=== PATIENT | female | born 1980 | race Caucasian/White ===

== ENCOUNTER 2021-10-19 00:05 | Emergency (ER) | payer MEDICAID, OTHER ==
[~2021-10-19] VITALS: Ht 165 cm; Wt 58.0 kg
[2021-10-19 00:46] LABS: BASOPHILS % (AUTO) 0 % (0-10); EOSINOPHILS % (AUTO) 0 % (0-10); HEMATOCRIT 37 % (35-52); HEMOGLOBIN 11.5 g/dL (11.5-16.0); LYMPHOCYTES # (AUTO) 1.8 10^3/uL (1.0-4.0); LYMPHOCYTES % (AUTO) 19 % (12-44); MEAN CORPUSCULAR HEMOGLOBIN 24 pg (25-34); MEAN CORPUSCULAR HGB CONC 31 g/dL (32-36); MEAN CORPUSCULAR VOLUME 77 fL (80-99); MEAN PLATELET VOLUME 10.1 fL (9.0-12.2); MONOCYTES # (AUTO) 0.8 10^3/uL (0.0-1.0); MONOCYTES % (AUTO) 8 % (0-12); NEUTROPHILS # (AUTO) 6.8 10^3/uL (1.8-7.8); NEUTROPHILS % (AUTO) 72 % (42-75); PLATELET COUNT 295 10^3/uL (130-400); WHITE BLOOD COUNT 9.4 10^3/uL (4.3-11.0)
[2021-10-19 00:56] LABS: BILIRUBIN,URINE NEGATIVE (NEGATIVE); CLARITY,URINE CLEAR; COLOR,URINE YELLOW; GLUCOSE, URINE (UA) NEGATIVE (NEGATIVE); KETONES,URINE 1+ (NEGATIVE); LEUKOCYTE ESTERASE ,URINE NEGATIVE (NEGATIVE); NITRITE,URINE NEGATIVE (NEGATIVE); PROTEIN,URINE TRACE (NEGATIVE)
[2021-10-19 00:59] LABS: ALBUMIN 4.4 GM/DL (3.2-4.5); CHLORIDE 104 MMOL/L (98-107); SODIUM 141 MMOL/L (135-145)
[2021-10-19 01:00] LABS: BACTERIA,URINE TRACE /HPF; SQUAMOUS EPITHELIAL CELL,UR 0-2 /HPF
[2021-10-19 01:00] LABS: CALCIUM 9.4 MG/DL (8.5-10.1)
[2021-10-19 01:01] LABS: GLUCOSE 115 MG/DL (70-105); TOTAL PROTEIN 6.9 GM/DL (6.4-8.2)
[2021-10-19 01:02] LABS: CARBON DIOXIDE 24 MMOL/L (21-32)
[2021-10-19 01:03] LABS: BILIRUBIN,TOTAL 0.9 MG/DL (0.1-1.0)
[2021-10-19 01:04] LABS: ALKALINE PHOSPHATASE 39 U/L (40-136)
[2021-10-19 01:05] LABS: CREATININE SERUM 0.75 MG/DL (0.60-1.30); GFR ESTIMATED 103
[2021-10-19 01:06] LABS: BUN/CREATININE RATIO 15
[2021-10-19 01:08] LABS: ALANINE AMINOTRANSFERASE 13 U/L (0-55); LIPASE 11 U/L (8-78)
--- NOTE | 2021-10-19 01:40 | ED Abdominal Pain ---
General Chief Complaint: Abdominal/GI Problems Stated Complaint: ABD PAIN,SWEATS,CAN'T EAT Nursing Triage Note: PT AMB TO ED BY POV WITH C/O LLQ PAIN X 2 WEEKS, WORSE OVER THE LAST 3 DAYS. PT REPORTS N/V/D X 3 DAYS, EATING WORSENS PAIN. PT WAS SEEN AT [facility] AND PRESCRIBED SUCRALFATE, ZOFRAN, PANTOPRAZOLE. Source of Information: Patient Exam Limitations: No Limitations History of Present Illness Date Seen by Provider: Oct 19, 2021 Time Seen by Provider: 00:35 Initial Comments This 40-year-old woman presents to the emergency room with complaints of intense left lower quadrant pain over the past 2 weeks, worsening over the past 3 days. She has had some degree of symptoms for about the past year. She denies any pain with urination. She has noted some blood in her stools. Symptoms include nausea, vomiting, and diarrhea for the past 3 days. Eating seems to exacerbate the symptoms. She has been under the care of Dr. Matthews, machine maintenance supervisor at [facility]. She reports hepatobiliary scan revealed gallbladder dysfunction. This study was done September 27. She reports gastric emptying study was performed October 03 and was unremarkable. She denies and LMP was 2 weeks ago. She had colonoscopy June 2020. She has not had any ultrasound or CT imaging that she can recall. She was seen in the clinic this afternoon and received a Toradol injection which was not very helpful. She was also prescribed Protonix, Zofran, and sucralfate. Pain has become more severe prompting her ER visit. She denies any fever. She denies any vaginal pain or discharge. Allergies and Home Medications Allergies Coded Allergies: No Known Drug Allergies (Unverified , 10/19/21) Patient Home Medication List Home Medication List Reviewed: Yes Tramadol HCl (Ultram) 50 Mg Tablet, 50 MG PO Q4H PRN for PAIN-BREAKTHROUGH Prescribed by: AZIZA NAVA on 10/19/21 0439 Review of Systems Review of Systems Constitutional: no symptoms reported EENTM: No Symptoms Reported Respiratory: No Symptoms Reported Cardiovascular: No Symptoms Reported Gastrointestinal: See HPI Genitourinary: No Symptoms Reported Musculoskeletal: no symptoms reported Skin: no symptoms reported Psychiatric/Neurological: No Symptoms Reported Endocrine: No Symptoms Reported Hematologic/Lymphatic: No Symptoms Reported Past Dbtgdqj-Hoemws-Hzlavv Hx Patient Social History Tobacco Use?: No Use of E-Cig and/or Vaping dev: No Substance use?: Yes Substance type: Marijuana (Gummy) Substance frequency: Several times a month Alcohol Use?: No Pt feels they are or have been: No Immunizations Up To Date Influenza Vaccine Up-to-Date: No; Not Current Past Medical History Surgeries: Yes (Salpingectomy) Section (X3) Respiratory: No Cardiac: No Neurological: No : No Genitourinary: No Gastrointestinal: Yes (Chronic abdominal pain) Musculoskeletal: No Endocrine: No HEENT: No Cancer: No Psychosocial: No Integumentary: No Physical Exam Vital Signs Vital Signs - First Documented 10/19/21 00:46 Temp 36.8 Pulse 50 Resp 16 B/P (MAP) 156/98 (117) Pulse Ox 99 O2 Delivery Room Air Capillary Refill : Less Than 3 Seconds Height/Weight/BMI Height: '" Weight: lbs. oz. kg; 21.00 BMI Method: General Appearance: WD/WN, mild distress HEENT: PERRL/EOMI, normal ENT inspection Neck: normal inspection Respiratory: lungs clear, normal breath sounds, no respiratory distress, no accessory muscle use Cardiovascular: regular rate, rhythm, no edema, no murmur Gastrointestinal: normal bowel sounds, soft; No distended; tenderness (Ge neralized and sparing the right lower quadrant. Most intense in the left lower quadrant) Extremities: normal inspection, no pedal edema Neurologic/Psychiatric: pai gow dealer II-XII nml as tested, no motor/sensory deficits, alert, normal mood/affect, oriented x 3 Skin: normal color, warm/dry Progress/Results/Core Measures Results/Orders Lab Results Laboratory Tests Test 10/19/21 00:27 10/19/21 00:35 Range/Units Urine Color YELLOW Urine Clarity CLEAR Urine pH 7.0 5-9 Urine Specific [place] 1.020 1.016-1.022 Urine Protein TRACE H NEGATIVE Urine Glucose (UA) NEGATIVE NEGATIVE Urine Ketones 1+ H NEGATIVE Urine Nitrite NEGATIVE NEGATIVE Urine Bilirubin NEGATIVE NEGATIVE Urine Urobilinogen 1.0 < = 1.0 MG/DL Urine Leukocyte Esterase NEGATIVE NEGATIVE Urine RBC (Auto) NEGATIVE NEGATIVE Urine RBC NONE /HPF Urine WBC NONE /HPF Urine Squamous Epithelial Cells 0-2 /HPF Urine Crystals NONE /LPF Urine Bacteria TRACE /HPF Urine Casts NONE /LPF Urine Mucus SMALL H /LPF Urine Culture Indicated NO White Blood Count 9.4 4.3-11.0 10^3/uL Red Blood Count 4.78 3.80-5.11 10^6/uL Hemoglobin 11.5 11.5-16.0 g/dL Hematocrit 37 35-52 % Mean Corpuscular Volume 77 L 80-99 fL Mean Corpuscular Hemoglobin 24 L 25-34 pg Mean Corpuscular Hemoglobin Concent 31 L 32-36 g/dL Red Cell Distribution Width 16.9 H 10.0-14.5 % Platelet Count 295 130-400 10^3/uL Mean Platelet Volume 10.1 9.0-12.2 fL Immature Granulocyte % (Auto) 0 % Neutrophils (%) (Auto) 72 42-75 % Lymphocytes (%) (Auto) 19 12-44 % Monocytes (%) (Auto) 8 0-12 % Eosinophils (%) (Auto) 0 0-10 % Basophils (%) (Auto) 0 0-10 % Neutrophils # (Auto) 6.8 1.8-7.8 10^3/uL Lymphocytes # (Auto) 1.8 1.0-4.0 10^3/uL Monocytes # (Auto) 0.8 0.0-1.0 10^3/uL Eosinophils # (Auto) 0.0 0.0-0.3 10^3/uL Basophils # (Auto) 0.0 0.0-0.1 10^3/uL Immature Granulocyte # (Auto) 0.0 0.0-0.1 10^3/uL Sodium Level 141 135-145 MMOL/L Potassium Level 3.0 L 3.6-5.0 MMOL/L Chloride Level 104 98-107 MMOL/L Carbon Dioxide Level 24 21-32 MMOL/L Anion Gap 13 5-14 MMOL/L Blood Urea Nitrogen 11 7-18 MG/DL Creatinine 0.75 0.60-1.30 MG/DL Estimat Glomerular Filtration Rate 103 BUN/Creatinine Ratio 15 Glucose Level 115 H 70-105 MG/DL Calcium Level 9.4 8.5-10.1 MG/DL Corrected Calcium 9.1 8.5-10.1 MG/DL Total Bilirubin 0.9 0.1-1.0 MG/DL Aspartate Amino Transf (AST/SGOT) 13 5-34 U/L Alanine Aminotransferase (ALT/SGPT) 13 0-55 U/L Alkaline Phosphatase 39 L 40-136 U/L C-Reactive Protein High Sensitivity < 0.01 0.00-0.50 MG/DL Total Protein 6.9 6.4-8.2 GM/DL Albumin 4.4 3.2-4.5 GM/DL Lipase 11 8-78 U/L Serum Test, Qualitative NEGATIVE NEGATIVE My Orders Orders - AZIZA MCGOWAN MD Cbc With Automated Diff (10/19/21 00:35) Comprehensive Metabolic Panel (10/19/21 00:35) Hs C Reactive Protein (10/19/21 00:35) Lipase (10/19/21 00:35) Ua Culture If Indicated (10/19/21 00:35) Ed Iv/Invasive Line Start (10/19/21 00:35) Hcg,Qualitative Serum (10/19/21 01:36) Ondansetron Injection (Zofran Injectio (10/19/21 01:45) Fentanyl Inj (Sublimaze Injection) (10/19/21 01:45) Lactated Ringers (Lr 1000 Ml Iv Solution (10/19/21 01:45) Ct Abdomen/Pelvis W (10/19/21 01:37) Potassium Chloride (Tablet) (Klor Con Ta (10/19/21 04:45) Medications Given in ED Vital Signs/I&O 10/19/21 10/19/21 00:46 04:46 Temp 36.8 36.3 Pulse 50 50 Resp 16 16 B/P (MAP) 156/98 (117) 121/67 Pulse Ox 99 98 O2 Delivery Room Air Room Air Blood Pressure Mean: 117 Progress Progress Note : Progress Note Symptoms were treated with fentanyl and Zofran. She was hydrated with a liter of IV fluids. Hypokalemia was noted, but work-up was otherwise unremarkable. She was offered CT scan for further evaluation which she accepted. CT revealed no specific etiology for her pain. There was prominent uterus and endometrium noted which could be due to physiologic menstrual phase. Patient was ultimately discharged with recommendations for symptom management and follow-up. Potassium was replaced orally. Patient was offered further evaluation with outpatient ultrasound. Order was provided. Diagnostic Imaging Diagonstic Imaging: CT Plain Films/CT/US/NM/MRI: abdomen, pelvis Comments CT scan viewed by me and stat rad report reviewed. Official read below eventually reviewed after patient departure. NAME: KULWANT MURRAY [facility] REC#: [id number] PT STATUS: DEP ER : 1980 PHYSICIAN: AZIZA MCGOWAN MD ADMIT DATE: 10/19/21/ER Signed Date of Exam:10/19/21 CT ABDOMEN/PELVIS W PROCEDURE: CT abdomen and pelvis with contrast. TECHNIQUE: Multiple contiguous axial images were obtained through the abdomen and pelvis after administration of intravenous contrast. Auto Exposure Controls were utilized during the CT exam to meet ALARA standards for radiation dose reduction. All CT scans use one or more of the following dose optimizing techniques: automated exposure control, MA and/or KvP adjustment based on patient size and exam type or iterative reconstruction. INDICATION: Abdominal pain, generalized COMPARISON: None FINDINGS: The lung bases are clear. The heart is normal in size. The liver demonstrates a focal lesion at the dome of the right lobe which measures 2.2 x 2.1 cm in size on axial imaging. This does appear to have irregular interrupted peripheral enhancement on this phase. The spleen appears normal. The pancreas appears normal. The adrenal glands are normal. The kidneys demonstrate normal enhancement. There is no hydronephrosis or mass seen. The bowel loops are nondistended without obstruction. The appendix appears normal (image 108 series 2). No free fluid or free air is seen. The uterus is mildly prominent with endometrial fluid. No acute osseous abnormality is seen. Air-filled degenerative cystlike changes are noted at the right iliac body. IMPRESSION: 1. No acute abnormality is seen in the abdomen or pelvis. 2. Prominent uterus with mildly increased endometrial fluid, but no discrete mass is seen. 3. Small heterogeneous lesion of the superior right liver, most compatible with a hemangioma. No significant changes from the preliminary report. Dictated by: Dictated on workstation # [id number] Dict: 10/19/2146 Trans: 10/19/21 1133 [facility] [id number] Interpreted by: SHANAE GARCÍA MD Electronically signed by: SHANAE GARCÍA MD 10/19/21 1133 Departure Impression Primary Impression: Generalized abdominal pain Additional Impressions: Nausea vomiting and diarrhea Hypokalemia Disposition: 01 HOME, SELF-CARE Condition: Improved Departure-Patient Inst. Referrals: NO,LOCAL PHYSICIAN (PCP/Family) Primary Care Physician Patient Instructions: Abdominal Pain, Adult ED Add. Discharge Instructions: Drink plenty of clear liquids to stay well-hydrated. Use your medications as prescribed. Return to the emergency room after 7:30 in the morning with your ultrasound order form. Check in at the registration desk with your order form. Eat a low-fat, low oil diet to avoid triggering gallbladder problems. Use Tylenol (acetaminophen) up to 1000 mg every 6 hours as needed for pain. Add Ultram (tramadol) as prescribed for pain not controlled by Tylenol. Follow-up with your primary care provider and machine maintenance supervisor as soon as possible. Return to the ER if you have worsening symptoms. All discharge instructions reviewed with patient and/or family. Voiced understan linda. Scripts Tramadol HCl (Ultram) 50 Mg Tablet 50 MG PO Q4H PRN for PAIN-BREAKTHROUGH, #10 TAB Prov: AZIZA MCGOWAN MD 10/19/21 AZIZA MCGOWAN MD Oct 19, 2021 01:40
[2021-10-19] MEDS ORDERED: fentaNYL INJ 100 MCG/2 ML AMP IVP ONE (01:45)
[2021-10-19] MEDS ORDERED: ONDANSETRON 4 MG/2 ML (SDV) Z0FRAN IVP ONE (01:45)
[2021-10-19] MEDS ORDERED: LACTATED RINGERS 1,000 ML IV ONE (01:45)
[2021-10-19] MEDS ORDERED: TRAM-42 PO (04:38)
[2021-10-19] MEDS ORDERED: KCL 10 MEQ TAB (MICRO K) PO ONE (04:45)
[2021-10-19 04:46] VITALS: BP 121/67
--- NOTE | 2021-10-19 06:57 | Diagnostic Imaging Report ---
PROCEDURE: CT abdomen and pelvis with contrast. TECHNIQUE: Multiple contiguous axial images were obtained through the abdomen and pelvis after administration of intravenous contrast. Auto Exposure Controls were utilized during the CT exam to meet ALARA standards for radiation dose reduction. All CT scans use one or more of the following dose optimizing techniques: automated exposure control, MA and/or KvP adjustment based on patient size and exam type or iterative reconstruction. INDICATION: Abdominal pain, generalized COMPARISON: None FINDINGS: The lung bases are clear. The heart is normal in size. The liver demonstrates a focal lesion at the dome of the right lobe which measures 2.2 x 2.1 cm in size on axial imaging. This does appear to have irregular interrupted peripheral enhancement on this phase. The spleen appears normal. The pancreas appears normal. The adrenal glands are normal. The kidneys demonstrate normal enhancement. There is no hydronephrosis or mass seen. The bowel loops are nondistended without obstruction. The appendix appears normal (image 108 series 2). No free fluid or free air is seen. The uterus is mildly prominent with endometrial fluid. No acute osseous abnormality is seen. Air-filled degenerative cystlike changes are noted at the right iliac body. IMPRESSION: 1. No acute abnormality is seen in the abdomen or pelvis. 2. Prominent uterus with mildly increased endometrial fluid, but no discrete mass is seen. 3. Small heterogeneous lesion of the superior right liver, most compatible with a hemangioma. No significant changes from the preliminary report. Dictated by: Dictated on workstation # [id number]
== END 2021-10-19 04:48 | disposition home or self-care (01) ==
LOC: ER 00:10
DX: R11.2 Nausea with vomiting, unspecified (principal); R19.7 Diarrhea, unspecified; E87.6 Hypokalemia; Z90.722 Acquired absence of ovaries, bilateral; Z28.310 Unvaccinated for COVID-19; Z32.02 Encounter for pregnancy test, result negative
CPT/HCPCS: 36415; 74177; 80053; 81000; 83690; 84703; 85025; 86141